=== PATIENT | male | born 1950 | race Two or more races ===

== ENCOUNTER 2023-04-19 09:57 | Inpatient (IN) | payer OTHER ==
[2023-04-19 11:07] VITALS: BMI 28.3
[2023-04-19] MEDS ORDERED: chlordiazePOXIDE HCL 25 MG CAPSULE PO PRN (13:58)
[2023-04-19] MEDS ORDERED: NALOXONE HCL 0.4 MG/ML VIAL IM PRN (13:59)
[2023-04-19] MEDS ORDERED: BENZONATATE 200 MG CAPSULE PO PRN (13:59)
[2023-04-19] MEDS ORDERED: IBUPROFEN 400 MG TABLET (FP) PO PRN (13:59)
[2023-04-19] MEDS ORDERED: MAGNESIUM HYDROX 2400MG/30ML ORAL SUSPENSION 30 ML CUP PO PRN (13:59)
[2023-04-19] MEDS ORDERED: DICYCLOMINE HCL 10 MG CAPSULE PO PRN (13:59)
[2023-04-19] MEDS ORDERED: LOPERAMIDE HCL 2 MG CAPSULE PO PRN (13:59)
[2023-04-19] MEDS ORDERED: BENZOCAINE/MENTHOL (CHLORASEPTIC ) LOZENGE MM PRN (13:59)
[2023-04-19] MEDS ORDERED: ACETAMINOPHEN 325 MG TABLET (FP) PO PRN (13:59)
[2023-04-19] MEDS ORDERED: BISMUTH SUBSALICYLATE 524 MG/30 ML PO PRN (13:59)
[2023-04-19] MEDS ORDERED: NALOXONE HCL (KLOXXADO) 8 MG SPRAY NS PRN (13:59)
[2023-04-19] MEDS ORDERED: guaiFENesin 600 MG TABLET.ER (FP) PO PRN (13:59)
[2023-04-19] MEDS ORDERED: ONDANSETRON *ODT* 4 MG TABLET SL PRN (13:59)
[2023-04-19] MEDS ORDERED: POLYETHYLENE GLYCOL (HEALTHYLAX) 3350 17 GM PACKET PO PRN (13:59)
[2023-04-19] MEDS ORDERED: methaDONE HCL 10 MG TABLET (FOR DETOX USE ONLY) ONE (15:29)
[2023-04-19] MEDS: methaDONE 40 MG, methaDONE 20 MG PO ONE (15:30)
[2023-04-19] MEDS: PRENATAL VITAMINS W/ FOLIC ACID TABLET (FP) PO SCH (15:55)
[2023-04-19] MEDS: INSULIN ASPART SLIDING SCALE (NOVOLOG) 1 VIAL SQ SCH (16:35)
[2023-04-19] MEDS: chlordiazePOXIDE HCL 25 MG CAPSULE PO SCH (18:02)
[2023-04-19] MEDS: METHOCARBAMOL 500 MG TABLET PO PRN (22:32)
[2023-04-19] MEDS: THIAMINE HCL 100 MG TABLET (FP) PO SCH (22:32)
[2023-04-19] MEDS: MELATONIN 5 MG TABLETS PO SCH (22:32)
[2023-04-20] MEDS: methaDONE 40 MG, methaDONE 20 MG PO ONE (05:51)
[2023-04-20] MEDS: cloNIDine HCL 0.1 MG TABLET PO PRN (05:51)
[2023-04-20] MEDS: hydrOXYzine PAMOATE 25 MG CAPSULE (FP) PO PRN (05:54)
[2023-04-20] MEDS: amLODIPine BESYLATE 10 MG TABLET (FP) PO SCH (10:28)
[2023-04-20 13:03] LABS: HEMATOCRIT 25.6 % (35.4-49); HEMOGLOBIN 8.2 GM/dL (11.7-16.9); MCH 23.3 pg (25.7-33.7); MCHC 32.2 g/dl (32.0-35.9); MEAN CELL VOLUME 72.2 fl (80-96); PLATELET COUNT 143 10^3/uL (134-434); RBC 3.54 M/mm3 (4.00-5.60); RDW 19.1 % (11.9-15.9); WHITE BLOOD COUNT 4.5 K/mm3 (4.0-10.0)
[2023-04-20 13:15] LABS: POTASSIUM 4.5 mmol/L (3.5-5.1)
[2023-04-20 13:18] LABS: ALBUMIN 3.1 g/dl (3.4-5.0); BLOOD UREA NITROGEN 19.9 mg/dL (7-18); CALCIUM 8.9 mg/dL (8.5-10.1)
[2023-04-20 13:22] LABS: BILIRUBIN,TOTAL 0.6 mg/dL (0.2-1)
[2023-04-20 13:23] LABS: TOT PROT 8.6 g/dl (6.4-8.2)
[2023-04-20 13:24] LABS: CREATININE 1.1 mg/dL (0.55-1.3)
[2023-04-21] MEDS: chlordiazePOXIDE HCL 25 MG CAPSULE PO SCH (05:52)
[2023-04-21] MEDS ORDERED: methaDONE HCL 10 MG TABLET PO SCH ×2 (06:00)
[2023-04-21] MEDS: methaDONE 40 MG, methaDONE 20 MG PO SCH (06:02)
[2023-04-21 13:39] LABS: IRON SERUM 32 ug/dL (50-175); TOTAL IRON BINDING CAPACITY 435 ug/dL (250-450)
[2023-04-21] MEDS: LACTULOSE 20 GM/30 ML UDC (FOR ORAL USE ONLY) PO SCH (14:53)
[2023-04-21] MEDS: IBUPROFEN 600 MG TABLET (FP) PO PRN (17:36)
[2023-04-21] MEDS: MAG HYDROX/AL HYDROX/SIMETH 30 ML UNIT-DOSE CUP PO PRN (17:37)
[2023-04-22] MEDS ORDERED: chlordiazePOXIDE HCL 10 MG CAPSULE PO PRN
[2023-04-22] MEDS: chlordiazePOXIDE HCL 10 MG CAPSULE PO SCH (05:41)
[2023-04-22] MEDS: FERROUS SO4 325 MG TABLET (FP) PO SCH (17:40)
[2023-04-23] MEDS: chlordiazePOXIDE HCL 10 MG CAPSULE PO SCH (05:22)
[2023-04-23] MEDS ORDERED: DOCUSATE SODIUM 100 MG CAPSULE (FP) PO PRN (14:15)
[2023-04-23] MEDS: NALTREXONE HCL 50 MG TABLET PO ONE (15:07)
[2023-04-23] MEDS ORDERED: INSULIN (NOVOLOG) ASPART 100 UNITS/ML 10ML VIAL ONE (17:20)
[2023-04-24] MEDS: chlordiazePOXIDE HCL 10 MG CAPSULE PO ONE (05:36)
[2023-04-24 06:37] VITALS: BP 115/73; PULSE 75; RESP 16; TEMP 97.6
[2023-04-24] MEDS ORDERED: NALTREXONE HCL 50 MG TABLET PO SCH (10:00)
== END 2023-04-24 09:57 | disposition home or self-care (01) | DRG 897 ==
LOC: YASAS 09:57 → Y6N 14:36
PROVIDERS: ADMIT Allergy & Immunology; ATTEND Psychiatry & Neurology Pain Medicine
PROC: HZ2ZZZZ Detoxification Services for Substance Abuse Treatment (ICD-10-PCS; principal; 2023-04-19)
DX: F19.230 Other psychoactive substance dependence with withdrawal, uncomplicated (principal); F11.20 Opioid dependence, uncomplicated; E72.20 Disorder of urea cycle metabolism, unspecified; F10.230 Alcohol dependence with withdrawal, uncomplicated; F12.20 Cannabis dependence, uncomplicated; F17.213 Nicotine dependence, cigarettes, with withdrawal; D50.9 Iron deficiency anemia, unspecified; I10 Essential (primary) hypertension; E10.9 Type 1 diabetes mellitus without complications; Z79.4 Long term (current) use of insulin; Z99.89 Dependence on other enabling machines and devices
CPT/HCPCS: 36415; 80053; 80305; 82140; 82962; 83036; 83540; 83550; 85027; 86780; 87635; 87811; 93005; 93010